=== PATIENT | male | born 1945 | race Caucasian/White ===

== ENCOUNTER 2018-11-15 14:36 | Observation (INO) | payer OTHER ==
[~2018-11-15] VITALS: Ht 182.9 cm; Wt 92.6 kg
[~2018-11-15 14:36] MED LIST: AMLO5 PO; ASPI81CH PO; ATOR80 PO; CHOL10002 PO; CIPR500 PO; CLOP75 PO; HYDR1TAB94 PO; LISI5 PO; METO25ER PO; Senna8.6 MG PO
[2018-11-15 15:00] LABS: Calcium, Ionized (POC) 1.12 mmol/L (1.10-1.46); Chloride (POC) 102 mmol/L (98-108); Creatinine (POC) 2.1 mg/dL (0.8-1.3); Glucose (ISTAT POC) 132 mg/dL (70-99); Hemoglobin (POC) 13.6 g/dL (13.5-17.5); Potassium (POC) 3.9 mmol/L (3.5-5.5); Sodium (POC) 137 mmol/L (135-148); Total CO2 (POC) 23 mmol/L (21-32)
[2018-11-15 15:27] LABS: BASOPHILS ABSOLUTE AUTO 0.07 K/mm3 (0.00-0.23); BASOPHILS PERCENT AUTO 0 % (0-2); EOSINOPHILS ABSOLUTE AUTO 0.03 K/mm3 (0.00-0.68); EOSINOPHILS PERCENT AUTO 0 % (0-6); Hematocrit 40.5 % (37.0-53.0); Hemoglobin 13.5 g/dL (13.5-17.5); IMMATURE GRAN ABSOLUTE AUTO 0.09 K/mm3 (0.00-0.10); IMMATURE GRAN PERCENT AUTO 1 % (0-1); LYMPHOCYTES ABSOLUTE AUTO 2.49 K/mm3 (0.84-5.20); LYMPHOCYTES PERCENT AUTO 15 % (21-46); MONOCYTES PERCENT AUTO 6 % (4-13); Mean Corpuscular HGB 30.5 pg (26.0-34.0); Mean Corpuscular HGB Conc 33.3 g/dL (31.5-36.5); Mean Corpuscular Volume 92 fL (80-100); Mean Platelet Volume 11.4 fL (9.1-12.4); NEUTROPHILS ABSOLUTE AUTO 12.63 K/mm3 (1.96-9.15); NEUTROPHILS PERCENT AUTO 77 % (41-73); Platelet Count 184 K/mm3 (150-400); RDW Standard Deviation 47.8 fL (35.1-46.3); Red Blood Cell Count 4.42 M/mm3 (4.30-5.90); White Blood Cell Count 16.31 K/mm3 (4.00-11.30)
[2018-11-15 15:39] LABS: Albumin, Blood 2.8 g/dL (3.4-5.0); Albumin/Globulin Ratio 0.8 (0.8-1.8); Bilirubin, Total 0.5 mg/dL (0.1-1.0); Bun/Creatinine Ratio 35.7 (12.0-20.0); Calcium, Blood 8.8 mg/dL (8.5-10.1); Creatinine, Blood 1.85 mg/dL (0.60-1.20); Globulin, Blood 3.6 g/dL (2.2-4.0); Potassium, Blood 4.1 mmol/L (3.5-5.5); Total Protein, Blood 6.4 g/dL (6.4-8.2)
[2018-11-15 15:50] LABS: International Normalized Ratio 1.16; Prothrombin Time Results 12.1 Sec (9.7-11.5)
--- NOTE | 2018-11-15 17:51 | NUR ---
PATIENT INTO DAY SURGERY FROM ER 5. History, Chart, Medications and Allergies reviewed before start of procedure.Patient confirms NPO status and agrees with scheduled surgery. Lungs clear T/O to Auscultation. SON TO DAY SURGERY WITH PATIENT.
--- NOTE | 2018-11-15 17:57 | NUR ---
11/15/18 1757 Umm Tafoya History, Chart, Medications and Allergies reviewed before start of procedure. PATIENT CONFIRMS NPO STATUS AND AGREES WITH SCHEDULED PROCEDURE. MONITOR INTACT WITH CONTINUOUS PULSE OXIMETRY AND INTERMITTENT BP. O2 VIA N/C INTACT THROUGHOUT SEDATION/PROCEDURE. 3-LEAD EKG REVIEWED WITH PHYSICIAN PRIOR TO START OF PROCEDURE. PATIENT DETERMINED TO BE ASA APPROPRIATE FOR PROPOFOL SEDATION PRIOR TO START OF PROCEDURE BY DR. BAIN. Bite Block Placed.
--- NOTE | 2018-11-15 18:10 | NUR ---
REPORT GIVEN TO BRYAN MARIN. NOTIFIED SURGICAL CHECKLIST NOT COMPLETE.
[2018-11-16 03:48] LABS: Source, Urine Clean Catch
[2018-11-16 03:53] LABS: Appearance, Urine Clear (Clear); Bilirubin, Urine Neg (Neg); Blood, Urine Neg (Neg); Color, Urine Yellow (P-Yellow); Glucose Qualitative, Urine Neg (Neg); Ketones, Urine Neg (Neg); Leukocyte Esterase, Urine Neg (Neg); Nitrite, Urine Neg (Neg); Protein, Urine Neg (Neg); Urobilinogen, Urine NORM (Normal)
[2018-11-16 04:04] LABS: BASOPHILS ABSOLUTE AUTO 0.09 K/mm3 (0.00-0.23); BASOPHILS PERCENT AUTO 1 % (0-2); EOSINOPHILS ABSOLUTE AUTO 0.24 K/mm3 (0.00-0.68); EOSINOPHILS PERCENT AUTO 2 % (0-6); Hematocrit 36.4 % (37.0-53.0); Hemoglobin 12.2 g/dL (13.5-17.5); IMMATURE GRAN ABSOLUTE AUTO 0.04 K/mm3 (0.00-0.10); IMMATURE GRAN PERCENT AUTO 0 % (0-1); LYMPHOCYTES PERCENT AUTO 26 % (21-46); MONOCYTES ABSOLUTE AUTO 0.99 K/mm3 (0.16-1.47); MONOCYTES PERCENT AUTO 8 % (4-13); Mean Corpuscular HGB 30.9 pg (26.0-34.0); Mean Corpuscular HGB Conc 33.5 g/dL (31.5-36.5); Mean Corpuscular Volume 92 fL (80-100); Mean Platelet Volume 11.1 fL (9.1-12.4); NEUTROPHILS ABSOLUTE AUTO 7.79 K/mm3 (1.96-9.15); NEUTROPHILS PERCENT AUTO 63 % (41-73); Platelet Count 167 K/mm3 (150-400); RDW Coefficient Variation 14.1 % (11.7-14.2); Red Blood Cell Count 3.95 M/mm3 (4.30-5.90); White Blood Cell Count 12.35 K/mm3 (4.00-11.30)
[2018-11-16 04:21] LABS: Bun/Creatinine Ratio 31.9 (12.0-20.0); Calcium, Blood 7.9 mg/dL (8.5-10.1); Creatinine, Blood 1.85 mg/dL (0.60-1.20); Potassium, Blood 4.1 mmol/L (3.5-5.5)
--- NOTE | 2018-11-16 06:43 | NUR ---
ASSUMED CARE APPROXIMATELY 1930 FROM TANIA VUONG. PT IS PLEASANT AND COMPLIANT W/CARE; PT HAD EGD COMPLETE UPON ARRIVAL TO DEPT FOR OBSERVATION ; PT ON RA BASELINE AND LIVES INDEPENDENTLY; PT USES URINAL AT BEDSIDE; CALLS APPROPRIATELY; PT'S SON AT BEDSIDE AT START OF SHIFT, WILL RETURN IN AM FOR DISCHARGE; PT DENIES HAVING ADVANCED DIRECTIVE, EDUCATIONAL MATERIALS PROVIDED FOR REVIEW; PT STATED HE SLEPT WELL BETWEEN INTERVENTIONS; CALL LIGHT W/IN REACH; BED IN LOWEST POSITION; WILL CONTINUE TO MONITOR AND ASSESS UNTIL HANDOFF TO DAY SHIFT RN.
--- NOTE | 2018-11-16 08:18 | NUR ---
AM NOTE. ASSUMED CARE OF PT APROX 0700, PT IS A&Ox4 AND SBA IN THE ROOM. PT WAS ADMITTED FOR GIB AND HAD EGD LAST NIGHT. PT'S VS STABLE AT THIS TIME. PT IS TO BE D/C HOME TODAY. L/S DIM AND CLEAR T/O, PT HAS DRY NONPRODUCTIVE COUGH. PT HAS HAD 1 LOOSE DARK STOOL THIS AM SINCE EDG. NO EDEMA IS NOTED ON ASSESSMENT. BT PRESENT AND HYPERACTIVE, ABD IS SOFT AND SLIGHTLY TENDER TO PALP. CALL LIGHT IN REACH, WILL CONTINUE TO MONITOR.
--- NOTE | 2018-11-16 11:18 | NUR ---
PT UPDATE... PT HAD GOTTEN UP WITHOUT HELP, PT STATED THAT HE FELT "DIZZY" OR "OFF" PT STATED HE FELT THAT WAY AT TIMES WITHOUT GETTING UP OR MOVING. PT'S CURRENT BP IS 128/47, HR 59, RR 17 O2 SATS ARE 94% ON RA. PT DENIES ANY CHEST PAIN OR SOB. WILL CONTINUE TO MONITOR.
[2018-11-16 13:28] LABS: Hematocrit 32.9 % (37.0-53.0)
--- NOTE | 2018-11-16 15:12 | NUR ---
Echocardioghram completed.
--- NOTE | 2018-11-16 18:45 | NUR ---
SHIFT SUMMARY. NO ACUTE CHANGES NOTED THIS SHIFT. PT'S VS STABLE. PT DENIES ANY CHEST PAIN/PRESSURE, N/V OR SOB. PT STATED THAT THE DIZZINESS HE FELT EARLIER THIS SHIFT HAS IMPROVED AND HE NO LONGER "FEELS OFF." ORTHOSTATIC BPS DONE AND WERE NEGATIVE. PT STATES THAT HE HAS NOT HAD ANY LOOSE DARK/BLACK BMS SINCE LATE THIS MORNING. PT DENIES ANY ABD PAIN AT THIS TIME. CALL LIGHT IN REACH, BED IS LOCKED AND LOW WILL CONTINUE TO MONITOR UNTIL REPORT IS GIVEN TO ONCOMING RN.
[2018-11-17 04:15] LABS: Hematocrit 34.3 % (37.0-53.0); Hemoglobin 11.5 g/dL (13.5-17.5); Mean Corpuscular HGB 31.3 pg (26.0-34.0); Mean Corpuscular HGB Conc 33.5 g/dL (31.5-36.5); Mean Corpuscular Volume 93 fL (80-100); Mean Platelet Volume 11.2 fL (9.1-12.4); Platelet Count 150 K/mm3 (150-400); RDW Standard Deviation 47.8 fL (35.1-46.3); Red Blood Cell Count 3.68 M/mm3 (4.30-5.90); White Blood Cell Count 11.82 K/mm3 (4.00-11.30)
--- NOTE | 2018-11-17 05:57 | NUR ---
PT HAD NO ACUTE CHANGES T/O NIGHT; VSS, HR TRENDING 50'S, DID TOUCH HIGH 40'S WHILE SLEEPING. PT HAD NO C/O DIZZINESS. STOOL DARK BROWN, IS BECOMING MORE FORMED. PT DENIED ABD PAIN/N/V. PROTONIX GTT CONT PER ORDERS. PT AMB INDEP IN ROOM, IS USING CALL LIGHT FOR ASSISTANCE, WILL CONT TO MONITOR UNTIL REP GIVEN TO ONCOMING RN.
[2018-11-17] MEDS ORDERED: PANT40 PO (12:17)
--- NOTE | 2018-11-17 13:11 | NUR ---
DISCHARGE SUMMARY PT A&OX4, VSS, LEFT FLOOR WITH SON, WITH ALL PERSONAL POSSESSIONS INCLUDING DISCHARGE PACKET. 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 DC INS PROVIDED. PT REP UNDERSTANDING THOSE INSTRUCTIONS INCLUDING FU WITH PCP. IV DC'D.
[2018-11-19 15:37] LABS: Performing Lab SYMBIODX; Test Name TISSUE BLOCK
== END 2018-11-17 12:54 | disposition home or self-care (01) ==
LOC: ER 14:36 → PCU 14:37
PROVIDERS: Emergency Medicine; Family Medicine; Hospitalist; Internal Medicine Gastroenterology; Nurse Practitioner Acute Care; ADMIT Internal Medicine
PROC: 0DB78ZX Excision of Stomach, Pylorus, Via Natural or Artificial Opening Endoscopic, Diagnostic (ICD-10-PCS; principal; 2018-11-15 17:00)
DX: K29.51 Unspecified chronic gastritis with bleeding (principal); K25.4 Chronic or unspecified gastric ulcer with hemorrhage; K20.8 Other esophagitis; K22.8 Other specified diseases of esophagus; K44.9 Diaphragmatic hernia without obstruction or gangrene; D50.0 Iron deficiency anemia secondary to blood loss (chronic); I25.10 Atherosclerotic heart disease of native coronary artery without angina pectoris; I12.9 Hypertensive chronic kidney disease with stage 1 through stage 4 chronic kidney disease, or unspecified chronic kidney disease; N18.3 Chronic kidney disease, stage 3 (moderate); F10.10 Alcohol abuse, uncomplicated; D72.829 Elevated white blood cell count, unspecified; N40.0 Benign prostatic hyperplasia without lower urinary tract symptoms; J44.9 Chronic obstructive pulmonary disease, unspecified; Z79.82 Long term (current) use of aspirin; Z79.02 Long term (current) use of antithrombotics/antiplatelets; Z79.899 Other long term (current) drug therapy; Z95.5 Presence of coronary angioplasty implant and graft
CPT/HCPCS: 36415; 71046; 80047; 80048; 80053; 81003; 81261; 83735; 85014; 85018; 85025; 85027; 85610; 85730; 86850; 86900; 86901; 88305; 88341; 88342; 93005; 93010; 93306; 94640; 94760; 96361; 96365; 96366; 96368; 96376; 99285-25; C9113; G0378; J2354; J2704; J2765; J7030; J7050; J7120

== ENCOUNTER 2019-02-13 07:10 | Day surgery (SDC) | payer OTHER ==
[~2019-02-13] VITALS: Ht 188 cm; Wt 94.0 kg
[~2019-02-13 07:10] MED LIST changes: +PANT40 PO
[2019-02-25 12:25] LABS: Performing Lab SYMBIODX; Test Name STOMACH BIOPSY
== END 2019-02-13 09:18 | disposition home or self-care (01) ==
LOC: ORSCSDS 07:10
PROVIDERS: Internal Medicine Gastroenterology
PROC: 0DB68ZX Excision of Stomach, Via Natural or Artificial Opening Endoscopic, Diagnostic (ICD-10-PCS; principal; 2019-02-13 08:30)
DX: C88.4 Extranodal marginal zone B-cell lymphoma of mucosa-associated lymphoid tissue [MALT-lymphoma] (principal); K21.0 Gastro-esophageal reflux disease with esophagitis; K44.9 Diaphragmatic hernia without obstruction or gangrene; I10 Essential (primary) hypertension; J44.9 Chronic obstructive pulmonary disease, unspecified; N40.0 Benign prostatic hyperplasia without lower urinary tract symptoms; I25.10 Atherosclerotic heart disease of native coronary artery without angina pectoris; F17.210 Nicotine dependence, cigarettes, uncomplicated; Z79.01 Long term (current) use of anticoagulants; Z79.82 Long term (current) use of aspirin; Z79.899 Other long term (current) drug therapy
CPT/HCPCS: 81261; 88305; 88341; 88342; J0330; J0461; J2405; J2704; J7120

== ENCOUNTER 2019-10-14 09:16 | Day surgery (SDC) | payer OTHER ==
[~2019-10-14] VITALS: Ht 188 cm; Wt 97.5 kg
[~2019-10-14 09:16] MED LIST changes: +AMLO10 PO; +Aspirin EC81 MG PO; +CARV6.25 PO; +NITROGLYCERIN0.4 M1 SL; +Prinivil10 MG PO; +TAMS.4ER PO; +TIOT18 INH
[2019-10-17 14:29] LABS: Performing Lab SYMBIODX; Test Name BIOPSY
== END 2019-10-14 11:23 | disposition home or self-care (01) ==
LOC: ORSCSDS 09:16
PROVIDERS: Internal Medicine Gastroenterology
PROC: 0DB78ZX Excision of Stomach, Pylorus, Via Natural or Artificial Opening Endoscopic, Diagnostic (ICD-10-PCS; principal; 2019-10-14 10:30)
PROC: 0DB58ZX Excision of Esophagus, Via Natural or Artificial Opening Endoscopic, Diagnostic (ICD-10-PCS; principal; 2019-10-14 10:30)
DX: C88.4 Extranodal marginal zone B-cell lymphoma of mucosa-associated lymphoid tissue [MALT-lymphoma] (principal); K44.9 Diaphragmatic hernia without obstruction or gangrene; K22.10 Ulcer of esophagus without bleeding; K22.2 Esophageal obstruction; I10 Essential (primary) hypertension; F17.210 Nicotine dependence, cigarettes, uncomplicated; J44.9 Chronic obstructive pulmonary disease, unspecified; I25.10 Atherosclerotic heart disease of native coronary artery without angina pectoris; E78.5 Hyperlipidemia, unspecified; Z79.899 Other long term (current) drug therapy; Z79.82 Long term (current) use of aspirin; Z79.01 Long term (current) use of anticoagulants
CPT/HCPCS: 88305; 88341; 88342; J2704; J7120

== ENCOUNTER 2020-08-10 08:03 | Day surgery (SDC) | payer OTHER ==
[~2020-08-10] VITALS: Ht 188 cm; Wt 100.3 kg
--- NOTE | 2020-08-10 10:02 | NUR ---
08/10/20 THEODORE AU PERFORMED DUONEB NEBULIZER TREATMENT UPON ARRIVAL TO STEP DOWN FOR COUGHING, WHEEZING AND LABORED BREATHING, PER MD BAIN. PT ABLE TO COMPLETE NEBULIZER WITH IMPROVEMENT IN COUGHING. PT EDUCATED TO STOP SMOKING, EVEN 6-8 CIGARETTES A DAY CAN AFFECT BREATHING ABILITIES. PT ENC TO ALSO TALK TO PRIMARY CARE PROVIDER ABOUT CHANGING INHALER.
[2020-08-17 14:06] LABS: Performing Lab SYMBIODX; Test Name TISSUE BLOCK
== END 2020-08-10 09:58 | disposition home or self-care (01) ==
LOC: ORSCSDS 08:03
PROVIDERS: Internal Medicine Gastroenterology
PROC: 0DB78ZX Excision of Stomach, Pylorus, Via Natural or Artificial Opening Endoscopic, Diagnostic (ICD-10-PCS; principal; 2020-08-10 09:15)
DX: C85.99 Non-Hodgkin lymphoma, unspecified, extranodal and solid organ sites (principal); K44.9 Diaphragmatic hernia without obstruction or gangrene; K20.90 Esophagitis, unspecified without bleeding; K22.2 Esophageal obstruction; F17.210 Nicotine dependence, cigarettes, uncomplicated; I10 Essential (primary) hypertension; J44.9 Chronic obstructive pulmonary disease, unspecified; Z79.899 Other long term (current) drug therapy; Z79.82 Long term (current) use of aspirin; Z79.02 Long term (current) use of antithrombotics/antiplatelets
CPT/HCPCS: 81261; 88305; 88323; 88341; 88342; J0330; J0461; J2405; J2704; J7120

== ENCOUNTER 2021-09-02 07:47 | Day surgery (SDC) | payer OTHER ==
[~2021-09-02] VITALS: Ht 188 cm; Wt 213.2 kg
[~2021-09-02 07:47] MED LIST changes: +CLOPIDOGREL300 M1 PO
--- NOTE | 2021-09-02 09:49 | NUR ---
09/02/21 0949 Yamileth Shepherd PT. COUGHING ALOT POST UPPER ENDO. PT. IS A SMOKER & DR.ENCOURAGED PT. TO STOP SMOKING. PT. ALSO WAS A LITTLE INCONTINENT POST PROCEDURE, PT. BROUGHT IN AN EXTRA PAIR OF JEANS BUT DECIDED HE DIDN'T NEED TO CHANGE HIS PANTS BEFORE GOING HOME.
== END 2021-09-02 09:30 | disposition home or self-care (01) ==
LOC: ORSCSDS 07:47
PROVIDERS: Student in an Organized Health Care Education/Training Program
PROC: 0DB98ZX Excision of Duodenum, Via Natural or Artificial Opening Endoscopic, Diagnostic (ICD-10-PCS; principal; 2021-09-02 09:00)
PROC: 0DB68ZX Excision of Stomach, Via Natural or Artificial Opening Endoscopic, Diagnostic (ICD-10-PCS; principal; 2021-09-02 09:00)
DX: Z85.79 Personal history of other malignant neoplasms of lymphoid, hematopoietic and related tissues (principal); K44.9 Diaphragmatic hernia without obstruction or gangrene; K29.70 Gastritis, unspecified, without bleeding; K29.80 Duodenitis without bleeding; I25.10 Atherosclerotic heart disease of native coronary artery without angina pectoris; J44.9 Chronic obstructive pulmonary disease, unspecified; I10 Essential (primary) hypertension; F17.210 Nicotine dependence, cigarettes, uncomplicated; Z79.82 Long term (current) use of aspirin; Z79.899 Other long term (current) drug therapy
CPT/HCPCS: 88305; 88312; 88341; 88342; J2704; J7120

== ENCOUNTER 2022-02-01 10:11 | Day surgery (SDC) | payer OTHER ==
[~2022-02-01] VITALS: Ht 188 cm; Wt 92.9 kg
--- NOTE | 2022-02-01 10:50 | NUR ---
02/01/22 1050 PAT DUKE PRE PROCEDURE LIDOCAIN 2% 3ML TO BACK OF THROAT PER DR ORDERS ROBINOL 0.2MG IV PER DR ORDERS PRE PROCEDURE
== END 2022-02-01 11:47 | disposition home or self-care (01) ==
LOC: ORSCSDS 10:11
PROVIDERS: Student in an Organized Health Care Education/Training Program
PROC: 0DB98ZX Excision of Duodenum, Via Natural or Artificial Opening Endoscopic, Diagnostic (ICD-10-PCS; principal; 2022-02-01 11:15)
DX: R13.10 Dysphagia, unspecified (principal); I25.10 Atherosclerotic heart disease of native coronary artery without angina pectoris; Z87.898 Personal history of other specified conditions; J44.9 Chronic obstructive pulmonary disease, unspecified; E78.5 Hyperlipidemia, unspecified; I10 Essential (primary) hypertension; I71.40 Abdominal aortic aneurysm, without rupture, unspecified; F17.210 Nicotine dependence, cigarettes, uncomplicated; Z79.82 Long term (current) use of aspirin; Z79.899 Other long term (current) drug therapy
CPT/HCPCS: 88305; J2704; J7120

== ENCOUNTER 2023-10-25 14:22 | Inpatient (IN) | payer OTHER ==
[~2023-10-25] VITALS: Ht 185.4 cm; Wt 83.9 kg
[~2023-10-25 14:22] MED LIST changes: -ALBU90OI INH; -AMIODARONE HCL200 MG PO; -ANORO ELLIPTA1 EACH INH; -DIGOX125 MC1 PO; -ELIQUIS2.5 MG PO; -FURO40 PO; -JARDIANCE10 MG PO
[2023-10-25 15:35] LABS: International Normalized Ratio 1.64; Prothrombin Time Results 16.9 Sec (9.7-11.5)
[2023-10-25] MEDS ORDERED: dilTIAZem HCL 100 MG in NS 100 ML IV SCH (16:10)
[2023-10-25] MEDS ORDERED: Diltiazem HCl 5 MG / ML 5ML Vial IV ONE (16:10)
[2023-10-25] MEDS ORDERED: Thiamine HCl 100 MG Tab PO ONE (16:15)
[2023-10-25 16:29] LABS: Ethanol (Alcohol), Blood, Med <3 mg/dL; Magnesium, Blood 2.3 mg/dL (1.6-2.4)
[2023-10-25 17:46] LABS: Influenza A, PCR NEGATIVE (NEGATIVE); Influenza B, PCR NEGATIVE (NEGATIVE); Resp Syncytial Virus, PCR NEGATIVE (NEGATIVE); SARS-Cov-2 (COVID-19) PCR, MMC NEGATIVE (NEGATIVE)
[2023-10-25] MEDS ORDERED: Ondansetron HCl 2 MG / ML 2ML Vial IV ONE (18:00)
[2023-10-25] MEDS ORDERED: Albuterol 2.5 MG/3 ML VIAL INH PRN (18:30)
[2023-10-25] MEDS ORDERED: Tiotropium Bromide 2.5 MCG/ACT MIST INHAL (10 ACT/4 GM) INH SCH (18:30)
[2023-10-25] MEDS ORDERED: Ondansetron HCl 2 MG / ML 2ML Vial IV PRN (18:30)
[2023-10-25] MEDS ORDERED: Metoprolol Tartrate 25 MG Tab PO SCH (19:00)
[2023-10-25] MEDS ORDERED: Furosemide 10 MG/ML 4ML Vial IV SCH (19:00)
[2023-10-25 20:25] LABS: Anti-Xa UFH, PHA Monitoring 0.1 IU/mL
--- NOTE | 2023-10-25 20:30 | NUR ---
ASSUMPTION OF CARE PATIENT ADMITTED FROM ED AT 2200 FOR AFIB RVR, NEW ONSET HF WITH PERIPHERAL AND PULMONARY EDEMA, ELEVATED BNP, QUINTON ON CKD, AND TRANSAMINITIS. AFIB RVR - RATE 120'S - 150'S. CARDIZEM @ 15MG/HR. HEPARING GTT INFUSING WELL. BP SOFT BUT STABLE AT THIS TIME, LAST BP 118/80. MD AWARE. HYPERVOLEMIA - PT GETTING LASIX BID. BLE EDEMA, R > L. ANTIEMBOLIC SOCKS ORDERED. RESP - SPO2 > 92% ON 2L VIA NC. ROOM AIR AT BASELINE. WET, PRODUCTIVE COUGH NOTED. COARSE, CRACKLES WITH LUNG AUSCULTATION. GI - SEMI-FIRM, DISTENDED ABD, NONTENDER. PT STATES THIS IS NORMAL FOR HIM. MD NOTES SUGGEST ASCITES. LIVER ENZYMES ELEVATED. PT OCCASIONALLY DRINKS A GLASS OF WHISKEY. REPORTS SOME NAUSEA AND AND POOR APPETITE WELL. NO EMESIS SINCE ARRIVAL TO PCU.
[2023-10-25] MEDS ORDERED: Heparin Sodium 5000 Units/ML 1ML MDV IV ONE (20:40)
[2023-10-25] MEDS ORDERED: Heparin Sodium,Porcine/0.5 NS 500 ML IV SCH (20:40)
[2023-10-25] MEDS ORDERED: Dose Adjust by Pharmacy XX STA (20:42)
[2023-10-25] MEDS ORDERED: Tamsulosin HCl 0.4 MG Cap PO SCH (21:00)
[2023-10-25 21:41] LABS: Source, Urine Clean Catch
[2023-10-25 21:48] LABS: Appearance, Urine Hazy (Clear); Bilirubin, Urine Neg (Neg); Blood, Urine Neg (Neg); Color, Urine Yellow (P-Yellow); Glucose Qualitative, Urine Neg (Neg); Ketones, Urine Neg (Neg); Leukocyte Esterase, Urine 2+ (Neg); Nitrite, Urine Neg (Neg); Protein, Urine 2+ (Neg); Urobilinogen, Urine 1+ (Normal)
[2023-10-25 22:00] VITALS: BP 147/123
[2023-10-25 22:05] LABS: Amorphous Light (0-Heavy); Bacteria Mod /hpf; Red Blood Cells, Urine 0-2 /hpf (0-2); Squamous Epithelial Cells Few /hpf (Few)
[2023-10-25 22:13] VITALS: BP 110/88
[2023-10-25] MEDS ORDERED: ANORO ELLIPTA1 EACH INH ×2 (22:19)
[2023-10-25] MEDS ORDERED: Ipratropium/Albuterol SulF 2.5-0.5MG/3 ML Amp INH SCH (22:40)
[2023-10-25 23:59] VITALS: BP 98/78
[2023-10-26] VITALS (41 sets, daily range): BP systolic 78–118; BP diastolic 46–104
[2023-10-26 03:48] LABS: BASOPHILS ABSOLUTE AUTO 0.03 K/mm3 (0.00-0.23); BASOPHILS PERCENT AUTO 0 % (0-2); EOSINOPHILS ABSOLUTE AUTO 0.01 K/mm3 (0.00-0.68); EOSINOPHILS PERCENT AUTO 0 % (0-6); Hematocrit 41.6 % (37.0-53.0); Hemoglobin 14.1 g/dL (13.5-17.5); IMMATURE GRAN ABSOLUTE AUTO 0.03 K/mm3 (0.00-0.10); IMMATURE GRAN PERCENT AUTO 0 % (0-1); LYMPHOCYTES ABSOLUTE AUTO 0.79 K/mm3 (0.84-5.20); LYMPHOCYTES PERCENT AUTO 9 % (21-46); MONOCYTES PERCENT AUTO 8 % (4-13); Mean Corpuscular HGB 32.9 pg (26.0-34.0); Mean Corpuscular HGB Conc 33.9 g/dL (31.5-36.5); Mean Corpuscular Volume 97 fL (80-100); Mean Platelet Volume 11.3 fL (9.1-12.4); NEUTROPHILS ABSOLUTE AUTO 7.12 K/mm3 (1.96-9.15); NEUTROPHILS PERCENT AUTO 82 % (41-73); Platelet Count 318 K/mm3 (150-400); RDW Coefficient Variation 18.3 % (11.7-14.2); RDW Standard Deviation 63.2 fL (35.1-46.3); Red Blood Cell Count 4.28 M/mm3 (4.30-5.90); White Blood Cell Count 8.68 K/mm3 (4.00-11.30)
[2023-10-26 04:05] LABS: Albumin, Blood 2.7 g/dL (3.4-5.0); Albumin/Globulin Ratio 0.6 (0.8-1.8); Bilirubin, Total 2.1 mg/dL (0.1-1.0); Bun/Creatinine Ratio 19.5 (12.0-20.0); Calcium, Blood 8.9 mg/dL (8.5-10.1); Creatinine, Blood 2.15 mg/dL (0.60-1.20); Globulin, Blood 4.7 g/dL (2.2-4.0); Total Protein, Blood 7.4 g/dL (6.4-8.2)
--- NOTE | 2023-10-26 06:15 | NUR ---
SHIFT SUMMARY PT HAS BEEN BETWEEN AWAKE AND SLEEP THROUGHOUT THE NIGHT AND INTTERMITTENTLY CONFUSED, I.E. AT ONE POINT OVERNIGHT, PT STATED HE WAS GETTING READY TO GO GOLFING. PT EASILY REORIENTED AND ANSWERING ORIENTATION QUESTION APPROPRIATELY x4. AFIB - CARDIZEM GTT @ 15MG/HR. HEPARIN GTT @ 15 UNITS/KG/HR. HR RESTING AT 120'S - 130'S. BP STABLE WITH SBP 110'S. RESP - TOLERATING 2L OF O2 VIA NC WELL. KEEP SPO2 > 92%. PRODUCTIVE CONGESTED/WET COUGH. LUNGS REMAIN COARSE TO AUSCULTATION. OTHERWISE, NO ACUTE CHANGES THROUGHOUT THE NIGHT.
--- NOTE | 2023-10-26 08:45 | NUR ---
THIS RN CONTACTED FR HARRELL REGARDING PTS HR. PT REMAINS IN THE 120'S-130'S. PT IS AT 15MG/HR ON DILT DRIP. DR HARRELL WOULD LIKE THIS RN TO GIVEN SCHEDUELED PO METOPROLOL AND IF HR DOES NOT COME DOWN THEN TO INCREASE DILT DRIP TO 18MG/HR.
[2023-10-26] MEDS ORDERED: Dose Adjust by Pharmacy XX STA (10:58)
[2023-10-26] MEDS ORDERED: Metoprolol Tartrate 1 MG/ML 5 ML VIAL IV ONE (11:35)
[2023-10-26] MEDS ORDERED: Lidocaine 2% Jelly Uro-Jet UR ONE (13:10)
[2023-10-26] MEDS ORDERED: Metoprolol Tartrate 25 MG Tab PO SCH (15:00)
--- NOTE | 2023-10-26 15:00 | NUR ---
THIS RN CONTACTED DR HARRELL REGARDING PTS MEDS. PT IS HYPOTENSIVE AT 94/70 (77). BLOOD PRESSURE IS OUT OF PARAMETERS FOR METOPROLOL THAT IS ORDERED AT 1500. PT CONTINUES TO BE AFIB RVR WITH A HR FROM 110'S-130'S. PROVIDER WOULD LIKE METOPROLOL TO BE GIVEN DISPITE PERAMETERS LONG THE MAP IS OVER 65.
--- NOTE | 2023-10-26 15:39 | NUR ---
THIS RN AT BEDSIDE TO MEDICATE PT. PT TOOK A DRINK OF WATER WITH MEDICATION AND BEGAN TO CHOKE. PT REPORTS THAT HE CHOKES SOMETIMES WHEN HE DRINKS WATER. WATER REMOVED FROM BEDSIDE TABLE. WILL CONSULT WITH SPEECH THERAPY FOR A POSSIBLE SWALLOW EVALUATION.
[2023-10-26] MEDS ORDERED: Digoxin 0.5 MG in Dextrose 5% 50 ML IV ONE (15:55)
[2023-10-26] MEDS ORDERED: Digoxin 0.25 MG/ML 2ML Amp IV ONE (15:55)
[2023-10-26 18:14] LABS: Alpha Feto Protein, Tumor Mkr 4.1 ng/mL (0.0-8.0); Carcinoembryonic Antigen 1.5 ng/mL (0.0-3.0)
--- NOTE | 2023-10-26 19:09 | NUR ---
SHIFT SUMMARY NEURO: PT ALERT AND ORIENTED X4, FOLLOWS COMMANDS. NO NEURO SYMPTOMS. CARDIAC: PT AFIB RVR THROUGHOUT THE DAY WITH A RATE RANGING 110'S-150'S. PT ASYMPTOMATIC THROUGHOUT THE DAY. DIFFICULTY WITH CONTROLLING RATE. MULTIPLE CALLED WERE MADE TO PROVIDER TO OPTIMIZE RATE CONTROL THERAPY. RATE CONTINUES TO FLUCTUATE FROM 110'S TO 130'S. THIS RN VOICED CONCERN ABOUT GIVING DIGOXIN WITH PTS KIDNEY FUNCTION TO PROVIDER AND PROVIDER STILL WANTED DIGOXIN TO BE ADMINISTERED. RESP: PT ON 2L NC. LUNG SOUNDS CLEAR THROUGHOUT. PT REPORTS SOB AT BASELINE. PT DOES HAVE A WET COUGH BUT HAS BEEN UNABLE TO COUGH UP ANY PHLEGM. PT DID ASPIRATE ON A MED THIS EVENING. PT WAS ABLE TO EAT DINNER WITHOUT ANY DIFFICULTIES SWALLOWING. GI/: PT DID NOT HAVE A BOWEL MOVEMENT TODAY. PT WAS UNABLE TO VOID THIS AFTERNOON. BLADDER SCAN RESULTED 497. STRAIGHT CATH ATTEMPTED SEVERAL TIMES. PARIS CATH PLACED TO PREVENT FURTHER TRAUMA. PROVIDER AWARE. REPORT TO TANIA ARIAS TO ASSUME CARE OF PT.
[2023-10-27] VITALS (14 sets, daily range): BP systolic 87–127; BP diastolic 60–91
[2023-10-27 04:24] LABS: BASOPHILS ABSOLUTE AUTO 0.05 K/mm3 (0.00-0.23); BASOPHILS PERCENT AUTO 1 % (0-2); EOSINOPHILS ABSOLUTE AUTO 0.08 K/mm3 (0.00-0.68); EOSINOPHILS PERCENT AUTO 1 % (0-6); Hematocrit 39.7 % (37.0-53.0); Hemoglobin 13.4 g/dL (13.5-17.5); IMMATURE GRAN ABSOLUTE AUTO 0.03 K/mm3 (0.00-0.10); IMMATURE GRAN PERCENT AUTO 0 % (0-1); LYMPHOCYTES ABSOLUTE AUTO 0.71 K/mm3 (0.84-5.20); LYMPHOCYTES PERCENT AUTO 7 % (21-46); MONOCYTES ABSOLUTE AUTO 1.09 K/mm3 (0.16-1.47); MONOCYTES PERCENT AUTO 10 % (4-13); Mean Corpuscular HGB Conc 33.8 g/dL (31.5-36.5); Mean Corpuscular Volume 98 fL (80-100); Mean Platelet Volume 11.2 fL (9.1-12.4); NEUTROPHILS ABSOLUTE AUTO 8.81 K/mm3 (1.96-9.15); NEUTROPHILS PERCENT AUTO 82 % (41-73); Platelet Count 320 K/mm3 (150-400); RDW Standard Deviation 63.4 fL (35.1-46.3); Red Blood Cell Count 4.06 M/mm3 (4.30-5.90); White Blood Cell Count 10.77 K/mm3 (4.00-11.30)
[2023-10-27] MEDS ORDERED: Clarify Drug Order XX ONE (04:55)
--- NOTE | 2023-10-27 06:19 | NUR ---
SHIFT SUMMARY PT REMAINS IN AFIB. SUSTAINS RATE 120'S - 130'S. BP STABLE. OVERALL UNEVENTFUL NIGHT. NO ACUTE CHANGES SINCE PREVIOUS NOTE.
[2023-10-27] MEDS ORDERED: Digoxin 0.25 MG/ML 2ML Amp IV SCH (11:00)
[2023-10-27] MEDS ORDERED: Metoprolol Succinate 25 MG TABCR PO SCH (14:00)
[2023-10-27] MEDS ORDERED: Digoxin 50 mcg/ml 1 ml Dose PO SCH (14:00)
--- NOTE | 2023-10-27 15:50 | NUR ---
ASSUMED CARE OF PT AT 1500 FROM TANIA ELLIOTT. HEPARIN GTT AND AMIODARONE INFUSING PER MD ORDERS. PT A&OX4, NO COMPLAINTS AT THIS TIME, ABLE TO USE CALL FOR NEEDS. WILL CONTINUE TO MONITOR. CALL LIGHT IN REACH.
--- NOTE | 2023-10-27 18:30 | NUR ---
NO CHANGES SINCE ASSUMING CARE. WILL PASS ON TO NOC SHIFT RN TO START ELIQUIS AND STOP HEPARIN PER MD ORDERS. PT HAS NO NEEDS AT THIS TIME. FAMILY AT BEDSIDE, CALL LIGHT IN REACH, BED IN LOWEST, LOCKED POSITION. WILL CONTINUE TO MONITOR AND GIVE REPORT TO NOC SHIFT RN.
[2023-10-27] MEDS ORDERED: Apixaban 5 MG Tab PO SCH (19:30)
--- NOTE | 2023-10-27 22:02 | NUR ---
ASSUMED CARE OF PATIENT FROM RAH MARIN. REVIEWED AND AGREE WITH ASSESSMENT. PATIENT ALERT AND ORIENTED, FOLLOWS COMMANDS. SLOW TO RESPOND. SP02 >94% ON RA. HR A.FIB 100-130, AMIO DRIP INFUSING, HEPARIN STOPPED AND TRANSITIONED TO ORAL MEDS. BP STABLE, DENIES CP/PRESSURE. PARIS PATENT AND DRAINING LIBERTAD URINE TO GRAVITY. CALL LIGHT IN REACH
[2023-10-28] VITALS (25 sets, daily range): BP systolic 75–127; BP diastolic 51–80
[2023-10-28 04:22] LABS: Bun/Creatinine Ratio 21.2 (12.0-20.0); Calcium, Blood 8.7 mg/dL (8.5-10.1); Creatinine, Blood 2.4 mg/dL (0.60-1.20); Magnesium, Blood 2.2 mg/dL (1.6-2.4); Potassium, Blood 4.5 mmol/L (3.5-5.5)
--- NOTE | 2023-10-28 04:29 | NUR ---
SHIFT SUMMARY PATIENT SLEPT MOST THE NIGHT, SOME CONFUSION WHEN WAKING UP, BUT OTHERWISE A&O. SP02 97% ON 2L VIA NC WHILE SLEEPING. HR A.FIB 100-130s, AMIO DRIP INF. DENIES CP/PRESSURE. NPO SINCE MIDNIGHT. PARIS PATENT AND DRAINING LIBERTAD URINE TO GRAVITY. INDEPENDENT REPOSITIONING SELF IN BED. CALL LIGHT IN REACH
[2023-10-28] MEDS ORDERED: Benzocaine Oral Spray 0.5ML UD ONE (08:06)
[2023-10-28] MEDS ORDERED: NS 1,000 ML IV ONE ×2 (08:12→08:30)
[2023-10-28] MEDS ORDERED: Sodium Chloride 0.9% Inj 10 ML IV ONE ×2 (08:20→08:23)
[2023-10-28] MEDS ORDERED: ePHEDrine Sulfate 50 MG/ML 1ML Injection ONE (08:20)
[2023-10-28] MEDS ORDERED: Phenylephrine HCl 100 MCG/ML-NS 10MLSYR (1MG/10ML) ONE (08:20)
[2023-10-28] MEDS ORDERED: propofoL 20 ML IV ONE (08:22)
[2023-10-28] MEDS ORDERED: Ketamine HCl 100 MG / ML 5ML Vial ONE (08:22)
[2023-10-28] MEDS ORDERED: Dexmedetomidine HCL 200 MCG / 2 ML ONE (08:29)
[2023-10-28] MEDS ORDERED: NS 0 ML IV ONE (08:30)
[2023-10-28] MEDS ORDERED: NS 100 ML IV ONE (08:31)
[2023-10-28] MEDS ORDERED: Empagliflozin 10 MG TAB PO SCH (09:00)
[2023-10-28] MEDS ORDERED: Aspirin 81 MG TabEC PO SCH (09:00)
--- NOTE | 2023-10-28 09:15 | NUR ---
ASSUMED CARE OF PT FOR RN BREAK, PT RESTING IN BED ALERT AND ORIENTED X4, RESPIRATIONS EVEN AND UNLABORED, ABLE TO DEEP BREATHE AND COUGH, MOVES ALL EXTREMETIES AND FOLLOWING COMMANDS. DR JULIO REMAINS AT BEDSIDE FOR POST PRECEDURE RECOVERY. MONITOR SHOWS SINUS RHYTHM, BLOOD PRESSURE LOW BUT REMAINING STABLE.
--- NOTE | 2023-10-28 09:20 | NUR ---
DR JULIO LEFT BEDSIDE AT THIS TIME.
--- NOTE | 2023-10-28 09:31 | NUR ---
DR HARRELL TO BEDSIDE FOR DAILY ROUNDING.
--- NOTE | 2023-10-28 17:55 | NUR ---
Shift Summary Pt alert and oriented to person, place, date, situation. He denies any chest pain/pressure or numb/tingling. Pt on tele. This AM pt in Afib in the 110's. Provider at bedside to complete KAYLA/cardioversion this AM. Pt has been in sinus rhythm in the 60's-70's. He has had a couple short runs of asymptomatic VTACH and SVT, Dr. Albright notified no new orders. EKG completed post cardioversion. Pt has a harsh nonproductive cough. He reports his throat gets dry and he vomits but has not vomitted this shift. Emesis bag/bucket at bedside. O2 in the 90's on RA. VSS. Garcia cathetor removed at 1107. Minor bleeding with removal of cath. Pt has not had urine output since removal of cathetor. Will bladder scan and follow bladder management protocol. PT/OT worked with patient this afternoon, please see notes for details. Pt able to use call light for needs, call light in reach. Will continue to monitor and report to amelia rodriguez RN.
[2023-10-28] MEDS ORDERED: Atorvastatin 10 MG Tab PO SCH (21:00)
[2023-10-28] MEDS ORDERED: Amiodarone HCl 200 MG Tab PO SCH (21:00)
[2023-10-29 01:09] LABS: Source, Urine Foley catheter
[2023-10-29 01:15] LABS: Bilirubin, Urine Neg (Neg); Blood, Urine 5+ (Neg); Glucose Qualitative, Urine 3+ (Neg); Ketones, Urine Neg (Neg); Leukocyte Esterase, Urine 2+ (Neg); Nitrite, Urine Neg (Neg); Protein, Urine 2+ (Neg); Specific Gravity, Urine 1.015 (1.003-1.022); Urobilinogen, Urine NORM (Normal)
[2023-10-29 01:22] LABS: Appearance, Urine Hazy (Clear); Color, Urine Yellow (P-Yellow)
[2023-10-29 01:23] LABS: Bacteria Few /hpf; Red Blood Cells, Urine TNTC /hpf (0-2); Squamous Epithelial Cells Not Seen /hpf (Few)
[2023-10-29 04:08] LABS: Albumin, Blood 2.6 g/dL (3.4-5.0); Albumin/Globulin Ratio 0.5 (0.8-1.8); Bun/Creatinine Ratio 23.1 (12.0-20.0); Calcium, Blood 9.1 mg/dL (8.5-10.1); Creatinine, Blood 2.08 mg/dL (0.60-1.20); Globulin, Blood 4.8 g/dL (2.2-4.0); Magnesium, Blood 2.1 mg/dL (1.6-2.4); Phosphorus, Blood 3.9 mg/dL (2.5-4.9); Potassium, Blood 4.5 mmol/L (3.5-5.5); Total Protein, Blood 7.4 g/dL (6.4-8.2)
[2023-10-29 04:24] VITALS: BP 116/67
--- NOTE | 2023-10-29 04:29 | NUR ---
SHIFT SUMMARY. PT HAS DONE WELL OVER COURSE OF SHIFT THUS FAR. AOX3-4, PLEASANT, COOPERATIVE, CALLS APPROPRIATELY, ABLE TO MAKE NEEDS KNOWN. VITALS HAVE REMAINED STABLE. CONTINUES TO RUN SINUS WITH OCCASIONAL RUNS OF SVT+VTACH. CALLED TO NOTIFY DR. TRINIDAD WHO DIRECTED TO CONTINUE TO MONITOR FOR TIME BEING. PT ASYMPTOMATIC. PT WAS RETAINING URINE THROUGHOUT MOST OF FIRST HALF OF SHIFT. WAS ABLE TO PEE EVERY SO OFTEN BUT WAS UNABLE TO EMPTY BLADDER AND BLADDER SCAN REVEALED BLADDER CONSISTENTLY HOLDING >400MLS. NOTIFIED DR. TRINIDAD WHO ORDERED PARIS CATHETER INSERTION. PARIS WAS IN PLACE FOR A COUPLE OF HOURS BEFORE PT REQUESTED REMOVAL. REMOVED UPON PT REQUEST AND 800MLS WAS IN PARIS BAG. SINCE THAT TIME, PT HAS BEEN DOING WELL. HAS NOT BEEN ABLE TO SLEEP MUCH THIS SHIFT. NO PAIN REPORTED. BED LOCKED IN LOWEST POSITION. CALL LIGHT LEFT WITHIN REACH. CONTINUING TO MONITOR.
[2023-10-29 08:40] VITALS: BP 120/70
[2023-10-29] MEDS ORDERED: Digoxin 0.125 MG Tab PO SCH (09:00)
[2023-10-29] MEDS ORDERED: Metoprolol Succinate 25 MG TABCR PO SCH (09:00)
[2023-10-29] MEDS ORDERED: Furosemide 40 MG Tab PO SCH (09:00)
--- NOTE | 2023-10-29 10:17 | NUR ---
ASSUMED CARE OF PT AT 0700 THIS AM. NO ACUTE CHANGES REPORTED OVERNIGHT. DR PUENTES IN TO SEE PT AND IS OK TO DISCHARGE PER CARDIOLOGY, SEE HIS NOTE FOR DETAILS. SEE DOCUMENTED VS AND ASSESSMENT. FAMILY AT BEDSIDE. PT DENIES NEEDS AT THIS TIME. CALL LIGHT IN REACH, WILL CONTINUE TO MONITOR. AWAITING DR TOMAS AT THIS TIME.
[2023-10-29] MEDS ORDERED: DIGOX125 MC1 PO ×2 (11:33)
[2023-10-29] MEDS ORDERED: FURO40 PO ×2 (11:33)
[2023-10-29] MEDS ORDERED: ELIQUIS2.5 MG PO ×2 (11:33)
[2023-10-29] MEDS ORDERED: JARDIANCE10 MG PO ×2 (11:33)
[2023-10-29] MEDS ORDERED: AMIODARONE HCL200 MG PO ×2 (11:33)
[2023-10-29] MEDS ORDERED: METO25ER PO ×2 (11:34)
[2023-10-29] MEDS ORDERED: ALBU90OI INH ×2 (11:35)
[2023-10-29 12:19] VITALS: BP 132/68
--- NOTE | 2023-10-29 12:49 | NUR ---
DISCHARGE NOTE PT'S FAMILY AT BEDSIDE FOR DISCHARGE TEACHING INCLUDING MEDICATION LIST/INSTRUCTIONS, FOLLOW UP APPOINTMENTS AND EDUCATION MATERIALS. ALL QUESTIONS AND CONCERNS WERE ADRESSED BY THIS RN PRIOR TO DISCHARGE. PT ABLE TO AMBULATE W WALKER TO RESTROOM AND BACK TO BED WITH THIS RN. PT ABLE TO DRESS HIMSELF WITH MINIMAL ASSISTANCE. PT'S FAMILY EXPRESSES THAT THEY WILL BE INVOLVED IN HIS CARE AT HOME. TELEMETRY AND IVs REMOVED PRIOR TO D/C. SEE DOCUMENTED VS. NEW PRESCRIPTIONS WERE FAXED TO PT'S PHARMACY OF CHOICE. PT WAS DISCHARGED VIA WHEELCHAIR TO PRIVATE VEHICLE UNDER THE CARE OF HIS FAMILY. NO FURTHER DISCHARGE NEEDS IDENTIFIED. ALL BELONGINGS SENT HOME W PT.
== END 2023-10-29 12:51 | disposition home health service (06) | DRG 291 ==
LOC: ER 14:22 → PCU 19:38
PROVIDERS: Emergency Medicine; Internal Medicine Cardiovascular Disease; Internal Medicine Hematology & Oncology; Nurse Practitioner Acute Care; Physician Assistant; ADMIT Family Medicine
PROC: 5A2204Z Restoration of Cardiac Rhythm, Single (ICD-10-PCS; principal; 2023-10-28)
DX: I13.0 Hypertensive heart and chronic kidney disease with heart failure and stage 1 through stage 4 chronic kidney disease, or unspecified chronic kidney disease (principal); I50.21 Acute systolic (congestive) heart failure; N17.9 Acute kidney failure, unspecified; E87.1 Hypo-osmolality and hyponatremia; I47.20 Ventricular tachycardia, unspecified; I48.91 Unspecified atrial fibrillation; K76.89 Other specified diseases of liver; N40.1 Benign prostatic hyperplasia with lower urinary tract symptoms; R33.8 Other retention of urine; E78.5 Hyperlipidemia, unspecified; I25.10 Atherosclerotic heart disease of native coronary artery without angina pectoris; I07.1 Rheumatic tricuspid insufficiency; J44.9 Chronic obstructive pulmonary disease, unspecified; F17.210 Nicotine dependence, cigarettes, uncomplicated; I73.9 Peripheral vascular disease, unspecified; N18.30 Chronic kidney disease, stage 3 unspecified; R54 Age-related physical debility; I42.8 Other cardiomyopathies; Z60.2 Problems related to living alone; Z95.5 Presence of coronary angioplasty implant and graft; Z92.3 Personal history of irradiation; Z85.72 Personal history of non-Hodgkin lymphomas; Z79.82 Long term (current) use of aspirin; Z71.6 Tobacco abuse counseling
CPT/HCPCS: 0241U; 36415; 71045; 71250; 74176; 76700; 80048; 80053; 80320; 81001; 82105; 82378; 83735; 83880; 84100; 84484; 85025; 85520; 85610; 85730; 86301; 87086; 93005; 93010; 93312; 93325; 93971; 94640; 94664; 94760; 94762; 96365; 96366; 96368; 96375; 97162; 97530; 99285-25; A9270; C8929; J0282; J1160; J1644; J1940; J2371; J2405; J2704; J7030; J7060; Q9957

== ENCOUNTER → 2023-10-25 | Outpatient (CLI) | payer OTHER ==
[~2023-10-25] MED LIST changes: +ALBU90OI INH; +AMIODARONE HCL200 MG PO; +ANORO ELLIPTA1 EACH INH; +ATOR10 PO; +DIGOX125 MC1 PO; +ELIQUIS2.5 MG PO; +FURO40 PO; +JARDIANCE10 MG PO
[2023-10-25 13:08] LABS: BASOPHILS ABSOLUTE AUTO 0.06 K/mm3 (0.00-0.23); BASOPHILS PERCENT AUTO 1 % (0-2); EOSINOPHILS ABSOLUTE AUTO 0.04 K/mm3 (0.00-0.68); EOSINOPHILS PERCENT AUTO 1 % (0-6); Hematocrit 43.1 % (37.0-53.0); Hemoglobin 14.6 g/dL (13.5-17.5); IMMATURE GRAN ABSOLUTE AUTO 0.03 K/mm3 (0.00-0.10); IMMATURE GRAN PERCENT AUTO 0 % (0-1); LYMPHOCYTES ABSOLUTE AUTO 0.86 K/mm3 (0.84-5.20); LYMPHOCYTES PERCENT AUTO 11 % (21-46); MONOCYTES ABSOLUTE AUTO 0.76 K/mm3 (0.16-1.47); MONOCYTES PERCENT AUTO 10 % (4-13); Mean Corpuscular HGB 32.5 pg (26.0-34.0); Mean Corpuscular HGB Conc 33.9 g/dL (31.5-36.5); Mean Corpuscular Volume 96 fL (80-100); Mean Platelet Volume 11.1 fL (9.1-12.4); NEUTROPHILS ABSOLUTE AUTO 5.98 K/mm3 (1.96-9.15); NEUTROPHILS PERCENT AUTO 77 % (41-73); Platelet Count 365 K/mm3 (150-400); RDW Coefficient Variation 17.8 % (11.7-14.2); RDW Standard Deviation 61.1 fL (35.1-46.3); Red Blood Cell Count 4.49 M/mm3 (4.30-5.90); White Blood Cell Count 7.73 K/mm3 (4.00-11.30)
[2023-10-25 13:14] LABS: Albumin, Blood 2.7 g/dL (3.4-5.0); Albumin/Globulin Ratio 0.5 (0.8-1.8); Bilirubin, Total 1.9 mg/dL (0.1-1.0); Bun/Creatinine Ratio 18.7 (12.0-20.0); Creatinine, Blood 2.3 mg/dL (0.60-1.20); Globulin, Blood 5.6 g/dL (2.2-4.0); Potassium, Blood 4.9 mmol/L (3.5-5.5); Thyroid Stimulating Hormone 2.492 uIU/mL (0.360-4.800); Total Protein, Blood 8.3 g/dL (6.4-8.2)
== END ==
LOC: LAB 12:50 → LAB SHORT 12:50
PROVIDERS: Physician Assistant
DX: R00.0 Tachycardia, unspecified (principal); R53.83 Other fatigue; R82.81 Pyuria
CPT/HCPCS: 80053; 84443; 84484; 85025; 87086